=== PATIENT | male | born 1990 | race Caucasian/White ===

== ENCOUNTER 2016-07-31 17:12 | Emergency (ER) | payer SELFPAY ==
[2016-07-31] MEDS ORDERED: HYDROCODONE/ACETAMINOPHEN 5/325MG TABLET ONE ×2 (18:29)
[2016-07-31] MEDS ORDERED: LIDOCAINE 5% TP SCH (19:15)
[2016-07-31] MEDS ORDERED: IBUPROFEN 600 MG TABLET ONE (21:16)
[2016-07-31] MEDS ORDERED: AMOX 875 MG/CLAV 125 MG 1 EACH TABLET ONE (21:16)
== END 2016-07-31 21:39 | disposition home or self-care (01) ==
LOC: ED 17:12
DX: S01.551A Open bite of lip, initial encounter (principal); F17.220 Nicotine dependence, chewing tobacco, uncomplicated; Z86.19 Personal history of other infectious and parasitic diseases; W54.0XXA Bitten by dog, initial encounter; Y92.009 Unspecified place in unspecified non-institutional (private) residence as the place of occurrence of the external cause
CPT/HCPCS: 99283 ×2; 12011 ×2; A9270 ×4